=== PATIENT | male | born 1935 | race Caucasian/White ===

== ENCOUNTER 2021-04-27 04:02 | Inpatient (IN) | payer MEDICARE ==
[~2021-04-27] VITALS: Ht 172.7 cm; Wt 79.4 kg
[2021-04-27] MEDS ORDERED: SODIUM CHLORIDE 0.9% 1000ML 1,000 ML IV ONE (04:30)
[2021-04-27 04:42] LABS: BASOPHILS % 0.5 % (0.0-1.0); EOSINOPHILS # (AUTO) 0.1 (0.0-0.4); EOSINOPHILS % 0.6 % (0.0-6.0); HEMATOCRIT 47.9 % (38.2-49.6); LYMPHOCYTES # (AUTO) 3.2 (1.0-3.2); LYMPHOCYTES % 39.1 % (18.0-39.1); MEAN CORPUSCULAR HEMOGLOBIN 31.7 pg (28-32); MEAN CORPUSCULAR HGB CONC 33.4 g/dL (31-35); MONOCYTES # (AUTO) 0.8 (0.2-0.8); MONOCYTES % 9.8 % (4.4-11.3); NEUTROPHILS # (AUTO) 4.1 (2.1-6.9); NEUTROPHILS % 49.8 % (38.7-80.0); PLATELET COUNT 209 x10e3/uL (140-360); RED BLOOD COUNT 5.04 x10e6/uL (4.3-5.7); RED CELL DISTRIBUTION WIDTH 13.9 % (11.7-14.4)
[2021-04-27 04:56] LABS: ALBUMIN 4.2 g/dL (3.5-5.0); ALBUMIN/GLOBULIN RATIO 1.3 (0.8-2.0); ANION GAP 20.3 mmol/L (8-16); CALCIUM 11.1 mg/dL (8.4-10.2); CREATININE, SERUM 0.94 mg/dL (0.72-1.25); POTASSIUM 4.3 mmol/L (3.5-5.1)
[2021-04-27 05:03] LABS: CREATINE KINASE MB 1.2 ng/mL (0-5.0)
[2021-04-27] MEDS ORDERED: CEFTRIAXONE 1 GM in SODIUM CHLORIDE 0.9% 50ML 50 ML IV ONE (05:15)
[2021-04-27 05:34] LABS: CLARITY,URINE CLEAR (CLEAR); COLOR,URINE YELLOW (YELLOW)
[2021-04-27 05:35] LABS: KETONES,URINE 2+ (NEGATIVE); LEUKOCYTE ESTERASE ,URINE TRACE (NEGATIVE); NITRITE,URINE NEGATIVE (NEGATIVE); PROTEIN,URINE DIPSTICK NEGATIVE (NEGATIVE); URINE UROBILINOGEN 1 mg/dL (0.2 - 1)
[2021-04-27] MEDS ORDERED: SODIUM CHLORIDE 0.9% 1000ML 1,000 ML IV STA (05:37)
[2021-04-27 05:50] LABS: BACTERIA,URINE FEW /HPF; EPITHELIAL CELLS,URINE RARE /LPF; RBC,URINE 0-5 /HPF (0-5); WBC,URINE (MAN) 0-5 /HPF (0-5)
[2021-04-27] MEDS ORDERED: SODIUM CHLORIDE 0.9% 1000ML 1,000 ML ONE (05:52)
[2021-04-27] MEDS ORDERED: IOPAMIDOL 370 MG/ML 200 ML INFUS..BTL INJ ONE (06:34)
[2021-04-27] MEDS ORDERED: SODIUM CHLORIDE 0.9% 50ML 50 ML ONE (06:34)
[2021-04-27] MEDS: PIPERACILLIN/TAZOBACTAM 3.375 GM in SODIUM CHLORIDE 0.9% 50ML 50 ML IV SCH ×3 (09:15→18:00)
[2021-04-27] MEDS: HYDROCODONE/APAP 7.5MG-325MG 1 EA TAB PO PRN ×3 (09:15→21:50)
[2021-04-27] MEDS: METRONIDAZOLE 500MG/NS 100ML IV SCH ×4 (09:15→23:30)
[2021-04-27] MEDS: SODIUM CHLORIDE 0.9% 1000ML 1,000 ML IV SCH ×2 (09:15→15:22)
[2021-04-27] MEDS ORDERED: HYDRALAZINE HCL 20 MG/ML VIAL IV PRN (14:30)
[2021-04-27 16:24] VITALS: BP 152/98
[2021-04-27 16:51] VITALS: BP 152/98
[2021-04-27 17:02] VITALS: BP 152/98
[2021-04-27 19:03] LABS: INR 1.21; PROTHROMBIN TIME 16.1 seconds (11.9-14.5)
[2021-04-27 20:00] VITALS: BP 129/97
[2021-04-27] MEDS: ONDANSETRON HCL INJ 2MG/ML 2ML 2 MG/ML VIAL IV PRN (20:36)
[2021-04-27 20:49] VITALS: BP 129/97
[2021-04-27] MEDS: ACETAMINOPHEN 325 MG TAB PO PRN (21:40)
[2021-04-27] MEDS ORDERED: MELATONIN 3 MG TAB PO ONE (23:45)
[2021-04-28] VITALS (8 sets, daily range): BP systolic 122–141; BP diastolic 75–97
[2021-04-28] MEDS: PIPERACILLIN/TAZOBACTAM 3.375 GM in SODIUM CHLORIDE 0.9% 50ML 50 ML IV SCH ×5 (00:33→23:19)
[2021-04-28] MEDS: HYDROCODONE/APAP 7.5MG-325MG 1 EA TAB PO PRN ×2 (03:49→15:40)
[2021-04-28] MEDS: METRONIDAZOLE 500MG/NS 100ML IV SCH ×3 (05:35→17:47)
[2021-04-28 07:29] LABS: BASOPHILS % 0.6 % (0.0-1.0); EOSINOPHILS # (AUTO) 0.1 (0.0-0.4); EOSINOPHILS % 0.7 % (0.0-6.0); HEMATOCRIT 43.7 % (38.2-49.6); HEMOGLOBIN 14.1 g/dL (14.0-18.0); LYMPHOCYTES % 28.8 % (18.0-39.1); MEAN CORPUSCULAR HEMOGLOBIN 31.4 pg (28-32); MEAN CORPUSCULAR HGB CONC 32.3 g/dL (31-35); MEAN CORPUSCULAR VOLUME 97.3 fL (81-99); MONOCYTES # (AUTO) 0.7 (0.2-0.8); MONOCYTES % 10.2 % (4.4-11.3); NEUTROPHILS # (AUTO) 4.2 (2.1-6.9); NEUTROPHILS % 59.6 % (38.7-80.0); PLATELET COUNT 181 x10e3/uL (140-360); RED BLOOD COUNT 4.49 x10e6/uL (4.3-5.7); RED CELL DISTRIBUTION WIDTH 14.5 % (11.7-14.4)
[2021-04-28 07:53] LABS: ALBUMIN 3.3 g/dL (3.5-5.0); ALBUMIN/GLOBULIN RATIO 1.2 (0.8-2.0); ANION GAP 14.7 mmol/L (8-16); CALCIUM 9.8 mg/dL (8.4-10.2); CREATININE, SERUM 0.78 mg/dL (0.72-1.25); POTASSIUM 3.7 mmol/L (3.5-5.1)
[2021-04-28 07:54] LABS: CHOL/HDL RATIO 2.8 (3.9-4.7)
[2021-04-28 08:15] LABS: THYROID STIMULATING HORMONE 2.959 uIU/mL (0.350-4.940)
[2021-04-28] MEDS: ONDANSETRON HCL INJ 2MG/ML 2ML 2 MG/ML VIAL IV PRN ×3 (09:52→18:32)
[2021-04-28] MEDS ORDERED: ATENOLOL50 MG PO (11:31)
[2021-04-28] MEDS ORDERED: HYDROCODON-ACE1 EA12 PO (11:37)
[2021-04-28] MEDS ORDERED: FAMOTIDINE20 MG PO (11:37)
[2021-04-28] MEDS ORDERED: SIMVASTATIN20 MG PO (11:37)
[2021-04-28] MEDS ORDERED: TRAZODONE HCL50 MG PO (11:37)
[2021-04-28] MEDS ORDERED: GABAPENTIN600 MG PO (11:37)
[2021-04-28] MEDS ORDERED: PROTONIX20 MG PO (11:37)
[2021-04-28] MEDS ORDERED: HYDROCODONE-ACE10 M1 (11:37)
[2021-04-28] MEDS: ACETAMINOPHEN 325 MG TAB PO PRN ×2 (13:46→19:48)
[2021-04-28] MEDS: SIMVASTATIN 20 MG TAB PO SCH (17:09)
[2021-04-28] MEDS ORDERED: TRAZODONE HCL 50 MG TAB PO PRN (21:00)
[2021-04-29] VITALS (8 sets, daily range): BP systolic 117–141; BP diastolic 75–97
[2021-04-29] MEDS: METRONIDAZOLE 500MG/NS 100ML IV SCH ×4 (00:02→18:02)
[2021-04-29] MEDS: HYDROCODONE/APAP 7.5MG-325MG 1 EA TAB PO PRN ×3 (00:36→20:14)
[2021-04-29] MEDS: ACETAMINOPHEN 325 MG TAB PO PRN (04:19)
[2021-04-29] MEDS: PIPERACILLIN/TAZOBACTAM 3.375 GM in SODIUM CHLORIDE 0.9% 50ML 50 ML IV SCH ×4 (05:00→23:24)
[2021-04-29 05:28] LABS: BASOPHILS % 0.5 % (0.0-1.0); EOSINOPHILS # (AUTO) 0.1 (0.0-0.4); EOSINOPHILS % 1.9 % (0.0-6.0); HEMATOCRIT 43.5 % (38.2-49.6); HEMOGLOBIN 13.9 g/dL (14.0-18.0); LYMPHOCYTES # (AUTO) 1.8 (1.0-3.2); LYMPHOCYTES % 28.8 % (18.0-39.1); MEAN CORPUSCULAR HEMOGLOBIN 31.3 pg (28-32); MONOCYTES # (AUTO) 0.7 (0.2-0.8); MONOCYTES % 10.9 % (4.4-11.3); NEUTROPHILS # (AUTO) 3.6 (2.1-6.9); NEUTROPHILS % 57.7 % (38.7-80.0); PLATELET COUNT 165 x10e3/uL (140-360); RED BLOOD COUNT 4.44 x10e6/uL (4.3-5.7); RED CELL DISTRIBUTION WIDTH 14.4 % (11.7-14.4)
[2021-04-29 05:53] LABS: ALBUMIN 3.2 g/dL (3.5-5.0); ALBUMIN/GLOBULIN RATIO 1.2 (0.8-2.0); ANION GAP 12.7 mmol/L (8-16); CALCIUM 9.9 mg/dL (8.4-10.2); CREATININE, SERUM 0.81 mg/dL (0.72-1.25); POTASSIUM 3.7 mmol/L (3.5-5.1)
[2021-04-29] MEDS: ATENOLOL 50 MG TAB PO SCH (08:00)
[2021-04-29] MEDS: SIMVASTATIN 20 MG TAB PO SCH (16:46)
[2021-04-29] MEDS ORDERED: FAMOTIDINE 20 MG TAB PO ONE (18:30)
[2021-04-30 00:46] VITALS: BP 123/77
[2021-04-30] MEDS: HYDROCODONE/APAP 7.5MG-325MG 1 EA TAB PO PRN ×2 (03:11→09:22)
[2021-04-30] MEDS: PIPERACILLIN/TAZOBACTAM 3.375 GM in SODIUM CHLORIDE 0.9% 50ML 50 ML IV SCH ×3 (05:16→16:55)
[2021-04-30 05:23] LABS: BASOPHILS # (AUTO) 0.1 (0.0-0.1); BASOPHILS % 0.8 % (0.0-1.0); EOSINOPHILS # (AUTO) 0.2 (0.0-0.4); EOSINOPHILS % 2.7 % (0.0-6.0); HEMATOCRIT 42.8 % (38.2-49.6); HEMOGLOBIN 13.7 g/dL (14.0-18.0); LYMPHOCYTES # (AUTO) 1.8 (1.0-3.2); LYMPHOCYTES % 22.4 % (18.0-39.1); MEAN CORPUSCULAR HEMOGLOBIN 31.6 pg (28-32); MEAN CORPUSCULAR VOLUME 98.8 fL (81-99); MONOCYTES # (AUTO) 0.8 (0.2-0.8); MONOCYTES % 9.6 % (4.4-11.3); NEUTROPHILS % 64.2 % (38.7-80.0); PLATELET COUNT 175 x10e3/uL (140-360); RED BLOOD COUNT 4.33 x10e6/uL (4.3-5.7); RED CELL DISTRIBUTION WIDTH 14.3 % (11.7-14.4)
[2021-04-30 05:54] VITALS: BP 126/71
[2021-04-30] MEDS: METRONIDAZOLE 500MG/NS 100ML IV SCH ×3 (06:04→12:35)
[2021-04-30 06:05] LABS: ALBUMIN 3.1 g/dL (3.5-5.0); ALBUMIN/GLOBULIN RATIO 1.1 (0.8-2.0); ANION GAP 10.8 mmol/L (8-16); CALCIUM 9.8 mg/dL (8.4-10.2); CREATININE, SERUM 0.88 mg/dL (0.72-1.25); POTASSIUM 3.8 mmol/L (3.5-5.1)
[2021-04-30 06:23] LABS: BILIRUBIN,DIRECT 0.7 mg/dL (0.0-0.5)
[2021-04-30 08:03] VITALS: BP 114/76
[2021-04-30 08:17] VITALS: BP 114/76
[2021-04-30] MEDS: ATENOLOL 50 MG TAB PO SCH (08:41)
[2021-04-30 11:02] VITALS: BP 109/77
[2021-04-30] MEDS ORDERED: ONDANSETRON HCL 4 MG ORAL DISINTEGRATING TAB PO PRN (14:00)
[2021-04-30 16:03] VITALS: BP 115/76
[2021-04-30] MEDS: SIMVASTATIN 20 MG TAB PO SCH (16:39)
[2021-04-30] MEDS ORDERED: METRONIDAZOLE 500 MG TAB PO SCH (18:00)
== END 2021-04-30 18:38 | disposition home or self-care (01) | DRG 872 ==
LOC: ER 04:20 → ERHOLD 07:55 → MED/SURG3 15:41
PROVIDERS: ADMIT Internal Medicine; ATTEND Internal Medicine
PROC: XW03396 Introduction of Ceftolozane/Tazobactam Anti-infective into Peripheral Vein, Percutaneous Approach, New Technology Group 6 (ICD-10-PCS; principal; 2021-04-27)
DX: A41.9 Sepsis, unspecified organism (principal); N39.0 Urinary tract infection, site not specified; K57.32 Diverticulitis of large intestine without perforation or abscess without bleeding; M48.56XA Collapsed vertebra, not elsewhere classified, lumbar region, initial encounter for fracture; D68.9 Coagulation defect, unspecified; K57.30 Diverticulosis of large intestine without perforation or abscess without bleeding; G89.29 Other chronic pain; R33.9 Retention of urine, unspecified; N40.1 Benign prostatic hyperplasia with lower urinary tract symptoms; R33.8 Other retention of urine; E78.5 Hyperlipidemia, unspecified; N31.2 Flaccid neuropathic bladder, not elsewhere classified; Z74.09 Other reduced mobility; E80.4 Gilbert syndrome; R65.20 Severe sepsis without septic shock; Z20.822 Contact with and (suspected) exposure to COVID-19
CPT/HCPCS: 36415; 51700; 71045; 72148; 74177; 80053; 80061; 81001; 82248; 82550; 82553; 83036; 83605; 83690; 83880; 84155; 84443; 84484; 85025; 85610; 85730; 87040; 87086; 93041; 96361; 97139; 99284; J0360; J0696; J2405; J2543; J7030; Q9967; U0002